=== PATIENT | female | born 1980 | race Caucasian/White ===

== ENCOUNTER 2022-06-08 08:34 | Day surgery (SDC) | payer BC ==
[2022-06-02 15:22] LABS: BASOPHILS % (AUTO) 0.5 % (0-1); EOSINOPHILS # (AUTO) 0.1 X10'3 (0-0.9); EOSINOPHILS % (AUTO) 1.2 % (0-6); LYMPHOCYTES # (AUTO) 1.9 X10'3 (1.1-4.8); LYMPHOCYTES % (AUTO) 20.2 % (21-51); MEAN CORPUSCULAR HEMOGLOBIN 30.6 PG (27.0-31.0); MEAN CORPUSCULAR HGB CONC 33.9 g/dL (33.0-36.5); MEAN CORPUSCULAR VOLUME 90.3 FL (78-98); MEAN PLATELET VOLUME 7.8 FL (7.4-10.4); MONOCYTES # (AUTO) 0.7 X10'3 (0-0.9); MONOCYTES % (AUTO) 7.2 % (2-12); NEUTROPHILS # (AUTO) 6.6 X10'3 (1.8-7.7); NEUTROPHILS % (AUTO) 70.9 % (42-75); PRE OP HEMATOCRIT 41.8 % (35.0-45.0); PRE OP HEMOGLOBIN 14.2 g/dL (12.0-16.0); PRE OP PLATELET COUNT 225 X10'3 (140-440); RED BLOOD COUNT 4.63 X10'6 (4.20-5.60); RED CELL DISTRIBUTION WIDTH 12.9 % (11.5-14.5)
[2022-06-02 15:33] LABS: PRE OP PROTIME 10.7 SECONDS (9.0-12.0)
[2022-06-02 15:37] LABS: ALBUMIN/GLOBULIN RATIO 1.1 (1.1-1.5); ALKALINE PHOSPHATASE 91 IU/L (46-116); BLOOD UREA NITROGEN 18 MG/DL (7-18); CALCIUM 9.7 MG/DL (8.5-10.1); CHLORIDE 104 MMOL/L (99-107); PRE OP ALT 13 U/L (30-65); PRE OP ANION GAP 9 (8-16); PRE OP AST 13 U/L (10-37); PRE OP BILIRUB, TOTAL 0.4 MG/DL (0.0-1.0); PRE OP GLUCOSE 107 MG/DL (70-104); PRE OP POTASSIUM 4.2 MMOL/L (3.4-5.1); PRE OP SODIUM 139 MMOL/L (135-145); TOTAL CARBON DIOXIDE 25.7 MMOL/L (24-32); TOTAL PROTEIN 7.5 G/DL (6.4-8.2); eGFR 49 ML/MIN
[2022-06-02 15:53] LABS: HCG SERUM QL NEGATIVE
[~2022-06-08] VITALS: Ht 162.6 cm; Wt 63.5 kg
[2022-06-08] VITALS (15 sets, daily range): BP systolic 114–123; BP diastolic 67–86
[~2022-06-08 08:34] MED LIST: NO HOME MEDS; famotidine 20mg tablet PO ONE; levoFLOXACIN-Levaquin 500mg/D5 100 ML IV ONE; ringers solution, lacted 1,000 ML IV SCH
[2022-06-08] MEDS ORDERED: BUPIVAcaine/PF 2.5 mg/ml (0.25%) 30ml vial ONE (09:08)
[2022-06-08] MEDS ORDERED: midazolam 1 mg/ML 2ml injection ONE (09:41)
[2022-06-08] MEDS ORDERED: fentaNYL/PF 50MCG/1 ML 2ML syringe ONE ×2 (09:41→10:12)
[2022-06-08] MEDS ORDERED: ondansetron/PF 4mg/2ml inj ONE (10:11)
[2022-06-08] MEDS ORDERED: propofol inj 20 ML IV ONE (10:11)
[2022-06-08] MEDS ORDERED: dexamethasone sod phosphate 4mg/ml inj. ONE (10:11)
[2022-06-08] MEDS ORDERED: LIDOcaine 2% (20mg/ml) 5ml vial ONE (10:11)
[2022-06-08] MEDS ORDERED: meperidine/PF 25mg/ml syringe IV PRN ×3 (10:15)
[2022-06-08] MEDS ORDERED: ondansetron/PF 4mg/2ml inj IV PRN (10:15)
[2022-06-08] MEDS ORDERED: proCHLORperazine 10 MG/2 ml inj IV PRN (10:15)
[2022-06-08] MEDS ORDERED: morphine 4 MG/ML inj SYRINge IV PRN (10:15)
[2022-06-08] MEDS ORDERED: morphine 2 MG/ML inj. syringe IV PRN (10:15)
[2022-06-08] MEDS ORDERED: ringers solution, lacted 1,000 ML IV SCH (10:15)
--- NOTE | 2022-06-08 10:43 | NUR ---
Received from OR via [facility], accompanied by Anesthesiologist DR PELAEZ and report given by Anesthesiolgist. PT PRESENSTS WITH PIV 20G RIGHT AC, SPO2 100% MASK 10L, LR RINNING AT 100MLS/HR. VSS. PT REPORTS PAIN 0. Addendum: 06/08/22 at 1059 by Ellie Mancilla RN, RN Amended: Links added.
[2022-06-08] MEDS ORDERED: oxyCODONE/APAP 5-325mg tablet PO ONE (11:25)
--- NOTE | 2022-06-08 12:53 | NUR ---
ALL DISCHARGE CRITERIA HAS BEEN MET. VSS, PAIN AT A TOLERABLE LEVEL, VOIDING AND ABLE TO SAFELY AMBULATE AND TRANSFER SELF. IV TAKEN OUT WITHOUT ANY COMPLICATIONS. ALL DISCHARGE INSTRUCTIONS COVERED WITH PATIENT AND ALL QUESTIONS ANSWERED. PATIENT TAKEN OUT VIA WHEELCHAIR TO PERSONAL VEHICLE WHERE DROVE PATIENT HOME. Addendum: 06/08/22 at 1327 by Ellie Mancilla RN, RN Amended: Links added.
== END 2022-06-08 12:53 | disposition home or self-care (01) ==
LOC: PRE-OP 08:34
PROVIDERS: ATTEND Surgery
DX: L90.5 Scar conditions and fibrosis of skin (principal); N60.12 Diffuse cystic mastopathy of left breast; N60.11 Diffuse cystic mastopathy of right breast; Z79.01 Long term (current) use of anticoagulants; Z79.899 Other long term (current) drug therapy; Z88.0 Allergy status to penicillin; Z98.890 Other specified postprocedural states
CPT/HCPCS: 19301; 36415; 80053; 82948; 84703; 85025; 85610; 85730; J1100; J1956; J2250; J2405; J2704; J3010; J3490; J7030; J7120; Z7506; Z7508; Z7512; A4215; A4618; A6258; A6449; A7000